=== PATIENT | male | born 1960 | race Caucasian/White ===

== ENCOUNTER 2022-03-27 19:13 | Emergency (ER) | payer OTHER, SELFPAY ==
--- NOTE | ~2022-03-27 | XR_ITS ---
EXAMINATION: XR chest 1V portable DATE: 03/27/2022 21:37 INDICATION: Atrial fibrillation with palpitations TECHNIQUE: frontal view of the chest was obtained. COMPARISON: None FINDINGS: Mild streaky bibasilar atelectasis. No pulmonary edema, pleural effusion or pneumothorax. The cardiom ediastinal silhouette is normal. IMPRESSION: 1. Mild streaky bibasilar atelectasis. Reviewed, dictated and finalized at location A.
--- NOTE | 2022-03-27 19:21 | ECG_ITS ---
Measurements Intervals [place] Rate: 96 P: MO: 0 QRS: 20 QRSD: 125 T: 5 QT: 346 QTc: 438 Interpretive Statements ATRIAL FIBRILLATION INTRAVENTRICULAR CONDUCTION DELAY DELAYED PRECORDIAL R/S TRANSITION BORDERLINE T WAVE ABNORMALITY- ANT/INF LEADS ABNORMAL ECG Electronically Signed On 03-27-2022 23:18:04 CDT by Bull Bales D.O.
[2022-03-27 19:32] VITALS: BP 145/86; PULSE 96; RESP 16; TEMP 36.4; O2SAT 98
--- NOTE | 2022-03-27 20:36 | ED.GENADULT ---
HPI - General Adult General Chief complaint: Arrhythmia/Palpitations Stated complaint: palpitations Time Seen by Provider: 03/27/22 20:23 History of Present Illness HPI narrative: Patient is a 61-year-old gentleman who presents to the emergency department with chief complaint of palpitations. Patient states that on Monday night he noticed that his heart started beating irregular. Patient states that he has had similar episodes about a year ago whenever he had a bout of atrial fibrillation at that time the patient was admitted to the hospital over the weekend at [facility] and had a cardioversion patient states that he followed up with a fountain worker with [facility] and subsequently has been doing well for some time afterwards the patient states that he had no chest pain or shortness of breath reports no episodes of feeling as though his heart is beating extremely fast he just feels as though his heart is beating funny. Related Data Allergies Allergy/AdvReac Type Severity Reaction Status Date / Time No Known Allergies Allergy Mild Verified 03/27/22 19:46 Review of Systems Review of Systems: A 10 system review of systems was completed on the patient and is negative except for what is stated in the HPI. Nursing and ancillary documentation was reviewed. Exam Narrative: GENERAL: Well-appearing, well-nourished, and in no acute distress. HEAD: Normocephalic, atraumatic. EYES: PERRLA and EOMI. ENT: Nares clear, no rhinorrhea or epistaxis. Mucous membranes moist. NECK: Supple. CHEST: Clear to auscultation. No respiratory distress. HEART: Irregular rate and rhythm. No murmur heard. Normal peripheral pulses. ABDOMEN: Soft, nontender, nondistended, normal active bowel sounds. EXTREMITIES: Normal range of motion. No edema. SKIN: Warm, dry, no rash. NEURO: No focal deficits. Alert and oriented x3. PSYCH: Normal mood and affect. Course Course Emergency Course: EKG interpreted by me atrial fibrillation with a rate of [address] elevation or ST depression Vital Signs Vital signs: Vital Signs Temperature 36.4 C 03/27/22 19:32 Pulse Rate 96 03/27/22 19:32 Respiratory Rate 16 03/27/22 19:32 Blood Pressure 145/86 H 03/27/22 19:32 Pulse Oximetry 98 03/27/22 19:32 Oxygen Delivery Room Air 03/27/22 19:32 Temperature 36.4 C 03/27/22 19:32 Pulse Rate 85 03/27/22 20:43 Respiratory Rate 12 03/27/22 20:43 Blood Pressure 128/88 03/27/22 20:43 Pulse Oximetry 97 03/27/22 20:43 Oxygen Delivery Room Air 03/27/22 19:32 Medical Decision Making Vital Signs Vital Signs: Vital Signs Temperature 36.4 C 03/27/22 19:32 Pulse Rate 96 03/27/22 19:32 Respiratory Rate 16 03/27/22 19:32 Blood Pressure 145/86 H 03/27/22 19:32 Pulse Oximetry 98 03/27/22 19:32 Oxygen Delivery Room Air 03/27/22 19:32 Temperature 36.4 C 03/27/22 19:32 Pulse Rate 85 03/27/22 20:43 Respiratory Rate 12 03/27/22 20:43 Blood Pressure 128/88 03/27/22 20:43 Pulse Oximetry 97 03/27/22 20:43 Oxygen Delivery Room Air 03/27/22 19:32 Lab Data Result diagrams: 03/27/22 21:00 03/27/22 20:59 Labs: Lab Results 03/27/22 03/27/22 03/27/22 Range/Units 20:59 21:00 21:00 WBC 9.5 (4.5-10.0) K/mm3 RBC 4.51 L (4.6-6.20) M/mm3 Hgb 13.6 L (14.0-18.0) g/dL Hct 42.1 (42.0-52.0) % MCV 93.3 (80-100) fl MCH 30.2 (26-34) pg MCHC 32.3 (32-36) g/dl RDW 13.2 (11.5-14.5) % Plt Count 359 (150-375) k/mm3 MPV 9.3 (7.4-10.4) fl Immature Gran % (Auto) 0.4 (0-0.5) % Neut % (Auto) 58.6 (45.5-73.1) % Lymph % (Auto) 32.1 (18.3-44.2) % [place] % (Auto) 6.9 (2.6-8.5) % Eos % (Auto) 1.8 (0-4.4) % Baso % (Auto) 0.2 (0.2-1.2) % Lymph # (Auto) 3.06 (0.9-3.2) K/mm3 [place] # (Auto) 0.7 H (0.1-0.6) K/mm3 Eos # (Auto) 0.2 (0-0.3) K/mm3 Baso # (Auto) 0.0 (0.0-0.1) K/mm3 Abs Immat Gran (auto) 0.04 H
[2022-03-27 20:43] VITALS: BP 128/88; PULSE 85; RESP 12; O2SAT 97
[2022-03-27 21:05] LABS: Basophils Percent Auto 0.2 % (0.2-1.2); Eosinophils Absolute Auto 0.2 K/mm3 (0-0.3); Eosinophils Percent Auto 1.8 % (0-4.4); Hematocrit 42.1 % (42.0-52.0); Hemoglobin 13.6 g/dL (14.0-18.0); Immature Granulocyte Absolute 0.04 K/mm3 (0.00-0.031); Immature Granulocyte Percent A 0.4 % (0-0.5); Lymphocytes Absolute Auto 3.06 K/mm3 (0.9-3.2); Lymphocytes Percent Auto 32.1 % (18.3-44.2); Mean Corpuscular HGB Conc 32.3 g/dl (32-36); Mean Corpuscular Hemoglobin 30.2 pg (26-34); Mean Corpuscular Volume 93.3 fl (80-100); Mean Platelet Volume 9.3 fl (7.4-10.4); Monocytes Absolute Auto 0.7 K/mm3 (0.1-0.6); Monocytes Percent Auto 6.9 % (2.6-8.5); Neutrophils Absolute Auto 5.6 K/mm3 (1.3-6.7); Neutrophils Percent Auto 58.6 % (45.5-73.1); Platelet Count Result 359 k/mm3 (150-375); Red Blood Count 4.51 M/mm3 (4.6-6.20); Red Cell Distribution Width 13.2 % (11.5-14.5); White Blood Count 9.5 K/mm3 (4.5-10.0)
[2022-03-27 21:16] LABS: Alanine Aminotransferase 19 U/L (6-50); Albumin Level 3.9 g/dL (3.5-5.1); Alkaline Phosphatase 48 U/L (38-126); Anion Gap 4 mmol/L (8-16); Aspartate Amino Transferase 19 U/L (17-59); Bilirubin,Total 0.3 mg/dL (0.2-1.3); Blood Urea Nitrogen 17 mg/dL (9-20); Calcium 8.7 mg/dL (8.4-10.2); Carbon Dioxide 26 mmol/L (22-30); Chloride 108 mmol/L (98-107); Estimated CRCL calculation 97 ml/min; Estimated Glomerular Filt Rate > 60; Glucose 97 mg/dL (65-110); Magnesium 2.1 mg/dL (1.6-2.3); Sodium 138 mmol/L (137-145)
[2022-03-27 21:17] LABS: INR 1.1; Prothrombin Time 13.7 Seconds (11.1-14.7)
[2022-03-27 21:18] LABS: Partial Thromboplastin Time 27.9 SECONDS (22.3-36.8)
[2022-03-27 21:28] LABS: NT Pro B Type Natriuretic Pept 734 pg/mL (5-100); Troponin I < 0.012 ng/mL (0.000-0.034)
[2022-03-27 22:11] VITALS: BP 134/80; PULSE 110; O2SAT 97
[2022-03-27] MEDS: ASPIRIN 325 MG TABLET PO (22:23)
[2022-03-27 22:30] VITALS: BP 128/83; PULSE 85; RESP 18; O2SAT 98
== END 2022-03-27 22:31 | disposition home or self-care (01) ==
PROVIDERS: Emergency Provider Emergency Medicine
DX: I48.91 Unspecified atrial fibrillation (principal); I45.9 Conduction disorder, unspecified; R94.31 Abnormal electrocardiogram [ECG] [EKG]
CPT/HCPCS: 36415; 71045; 80053; 83735; 83880; 84484; 85025; 85610; 85730; 93005; 99284; A9270

== ENCOUNTER 2024-08-07 14:33 | Outpatient (CLI) | payer BC, SELFPAY ==
--- NOTE | ~2024-08-07 | US_ITS ---
EXAMINATION:US venous doppler LE BI INDICATION:Lower extremity swelling TECHNIQUE: Multiple grayscale, color flow and Doppler images of the right and left lower extremity de ep venous systems were obtained and reviewed. COMPARISON:No prior studies for comparison. FINDINGS: The common femoral, superficial femoral and popliteal veins demonstrate normal respiratory variation, augmentation and compressibility. Color flow is also seen within the posterior tibial, pe roneal, greater saphenous and profunda veins. IMPRESSION: 1: No lower extremity deep venous thrombosis. Reviewed, dictated and finalized at location B. ENT GRINDER
== END 2024-08-07 14:34 | disposition home or self-care (01) ==
PROVIDERS: PCP Nurse Practitioner Family; Visit Provider Nurse Practitioner Family
DX: M79.89 Other specified soft tissue disorders (principal); I82.403 Acute embolism and thrombosis of unspecified deep veins of lower extremity, bilateral; R79.89 Other specified abnormal findings of blood chemistry
CPT/HCPCS: 93970

== ENCOUNTER 2024-10-10 14:37 | Outpatient (CLI) | payer BC, SELFPAY ==
--- OUTSIDE RECORDS SUMMARY | 2024-10-10 15:11 | XMS_ITS | Clinical Summary ---
Author Organization [facility] Address [address] [place] [address] Care Team Providers Care Dynamometer Tuner Name Role Phone Unknown, Provider Primary Care Provider Unavaila ble Source Comments [facility],non-owned Affiliates and Associated Physician Practices is amultiple site organization consisting of ambulatory clinics and hospital sitesin [place], [place], [place]. This disclosure is being madepursuant to the Care Everywhere program and may not contain all information available regarding this patient. Last updated 18.[facility] [employer] - Share Your Passion! Allergies No known active allergies Medications * Be aware that medications may not be up to date on this document. Alwaysverify current medications with the patient. Medication Sig Dispensed Refills Start Date End Date Status amiodarone (Cordarone) 200 MG tablet Take 1 (one) tablet by mouth 2 times daily 12/14/2023 Active tirzepatide (Mounjaro) 5 MG/0.5ML injectionIndicat ions:Weight Loss Inject 5 (five) mg subcutaneously every 7 days Reasons: Weight Loss Active apixaban (Eliquis) 5 MG tablet Take 1 (one) tablet by mouth 2 times daily Active prednisoLONE acetate (Pred Forte) 1 % ophthalmic suspension Instill 1 (one) drop into right eye 4 times daily 09/25/2024 Active nepafenac (Nevanac) 0.1 % ophth suspension Instill 1 drop into right eye 4 times daily 09/25/2024 Active moxifloxacin (Vigamox) 0.5 % ophthalmic solution Instill 1 (one) drop into right eye 4 times daily 09/25/2024 Active rosuvastatin (Crestor) 20 MG tablet 10/01/2024 Active prednisoLONE acetate (Pred Forte) 1 % ophthalmic suspension Instill 1 (one) drop into left eye 4 times daily 10/09/2024 Active nepafenac (Nevanac) 0.1 % ophth suspension Instill 1 drop into left eye 4 times daily 10/09/2024 Active moxifloxacin (Vigamox) 0.5 % ophthalmic solution Instill 1 (one) drop into left eye 4 times daily 10/09/2024 Active brimonidine (Alphagan) 0.2 % ophthalmic solution Instill 1 (one) drop into left eye 3 times daily 15 mL 10/09/2024 Active dilTIAZem coated beads 24hr (Cardizem CD) 120 MG capsule Take 1 (one) capsule by mouth once daily 08/11/2023 5 Discontinue d(List Clean-Up) Tiadylt ER 120 MG capsule Take 1 (one) capsule by mouth once daily 12/14/2023 5 Discontinue d(List Clean-Up) rosuvastatin (Crestor) 20 MG tablet Take 1 (one) tablet by mouth once daily 12/14/2023 5 Discontinue d(List Clean-Up) Jardiance 10 MG tablet Take 1 (one) tablet by mouth once daily 09/26/2023 5 Discontinue d(List Clean-Up) apixaban (Eliquis) 5 MG tablet Take 1 (one) tablet by mouth 2 times daily 5 Discontinue d(List Clean-Up) Active Problems No known active problems Encounters Date Type Department Care Team Description 10/09/2024 9:30 AM UNIVERSAL BANKER Office Visit [facility] - Ophthalmology [facility] [place] [phone] Piyush Lafleur MD Postop check (Primary Dx) 10/09/2024 Travel 10/08/2024 7:25 AM UNIVERSAL BANKER - 10/08/2024 8:15 AM UNIVERSAL BANKER Surgery [facility] SURGERY [address] [place] [phone] Piyush Lafleur MD Cataract extraction with intraocular lens implanation, LEFT EYE 10/08/2024 7:25 AM UNIVERSAL BANKER Anesthesia Event [facility] [address] [place] [phone] Tom Inman MD Rinderer, Mallory, CECILIO-FINAL ASSEMBLER BOAT 10/08/2024 6:08 AM UNIVERSAL BANKER - 10/08/2024 8:24 AM UNIVERSAL BANKER Hospital Encounter [facility] [address] [place] [phone] Piyush Lafleur MD Surgery General Discharge Disposition: Home or Self Care 10/08/2024 Travel 10/02/2024 3:00 PM UNIVERSAL BANKER Office Visit [facility] - Ophthalmology [address] [place] [phone] Piyush Lafleur MD Postop check (Primary Dx) 10/02/2024 Travel 09/25/2024 9:30 AM UNIVERSAL BANKER Office Visit [facility] - Ophthalmology [address] [place] [phone] Piyush Lafleur MD Postop check (Primary Dx) 09/25/2024 Travel 09/24/2024 7:26 AM UNIVERSAL BANKER Anesthesia Event [facility] [address] [place] [phone] Song Stubbs MD Rinderer, Mallory, COMMERCIAL FINANCE MANAGER-FINAL ASSEMBLER BOAT 09/24/2024 7:25 AM UNIVERSAL BANKER - 09/24/2024 8:15 AM UNIVERSAL BANKER Surgery [facility] [address] [place] [phone] Piyush Lafleur MD Cataract extraction with intraocular lens implanation, RIGHT EYE 09/24/2024 6:06 AM UNIVERSAL BANKER - 09/24/2024 8:45 AM UNIVERSAL BANKER Hospital Encounter [facility] [address] [place] [phone] Piyush Lafleur MD Surgery General Discharge Disposition: Home or Self Care 09/24/2024 Travel from Last 3 Months Social History Tobacco Use Types Packs/Day Years Used Date Smoking Tobacco: Never Smokeless Tobacco: Never Tobacco Cessation:Counseling Given: Not Answered Alcohol Use Standard Drinks/Week Comments Not Currently 0 (1 standard drink = 0.6 oz pur e alcohol) NOT FOR 2 YEARS Sex and Gender Information Value Date Recorded Sex Assigned at Not on file Gender Identity Not on file Sexual Orientation Not on file Last Filed Vital Signs Vital Sign Reading Time Taken Comments Blood Pressure 114/78 10/08/2024 8:10 AM UNIVERSAL BANKER Pulse 70 10/08/2024 8:10 AM UNIVERSAL BANKER Temperature 36.3 ??C (97.3 ??F) 10/08/2024 8:00 AM CS T Respiratory Rate 14 10/08/2024 8:10 AM UNIVERSAL BANKER Oxygen Saturation 96% 10/08/2024 8:10 AM UNIVERSAL BANKER Inhaled Oxygen Concentration - - Weight 146.4 kg (322 lb 12.8 oz) 10/08/2024 6:26 AM UNIVERSAL BANKER Height 182.9 cm (6') 10/08/2024 6:26 AM UNIVERSAL BANKER Body Mass Index 43.78 10/08/2024 6:26 AM UNIVERSAL BANKER Plan of Treatment Upcoming Encounters Date Type Department Care Team (Late st Contact Info) Description 10/16/2024 3:00 PM UNIVERSAL BANKER Office Visit [facility] - Ophthalmology [address] [place] [phone] Piyush Lafleur MD [address] [place] [address] [place] [phone] Health Maintenance Due Date Last Done Comments COLOGUARD (AGES 45-75) - COL ON CA SCREENING 1958 COLON MONITORING 1958 COLONOSCOPY - COLON CA SCREENING 1958 CT COLONOGRAPHY - COLON CA SCREENING 1958 Colorectal Cancer Screening 1958 FIT - COLON CA SCREENING 1958 FLEX SIG - COLON CA SCREENING 1958 HIV SCREENING 1973 HEPATITIS C SCREENING 11/22/1976 DTAP/TDAP/TD VACCINES (1 - Tdap) 1977 PNEUMOCOCCAL VACCINE 50+ (1 of 1 - PCV) 2008 ZOSTER VACCINE (1 of 2) 2008 Respiratory Syncytial Virus (RSV) Vaccine Pt: or over 60 yrs (1 - Risk 60-74 years 1-dose series) 2018 COVID-19 VACCINE ( - 2023-2 5 season) 2024 INFLUENZA VACCINE (#1) 2024 DEPRESSION SCREENING 09/11/2024 SCREENING FOR DIABETES 09/25/2024 HEPATITIS B VACCINE Aged Out No longe r eligible based on patient's age to complete this topic HIB VACCINE Aged Out No longer eligi ble based on patient's age to complete this topic HPV VACCINE Aged Out No longer eligi ble based on patient's age to complete this topic MENINGOCOCCAL (Group B) VACCINE Aged Out No longer eligible based on patient's age to complete this topic MENINGOCOCCAL VACCINE Aged Out No nas roxane eligible based on patient's age to complete this topic Medical Devices Implanted Type Area Turbinated Bone Grinder Device Identifier Shelf Expiration Date Model / Serial / Lot [employer] Iol Aspheric Absorbing Iol +20.5 D Implanted:Qty: 1 on 09/24/2024 by Piyush Lafleur MD at [facility] Implant Non-Ortho Right: Eye [employer] 07/05/2027 [id number] / [id number] / N/A Clareon Iol [id number] 21.5 Implanted:Qty: 1 on 10/08/2024 by Piyush Lafleur MD at [facility] Left: Eye 06/20/2027 CCA0T0 / [id number] / Procedures Procedure Name Priority Date/Time Associated Diagnosis Comments HI REMV CATARACT EXTRACAP,INSERT LENS 10/08/2024 7:19 AM UNIVERSAL BANKER Combined forms of age-related cataract of both eyes Special Needs SUPINE, MAC LOCAL HI REMV CATARACT EXTRACAP,INSERT LENS 09/24/2024 7:21 AM UNIVERSAL BANKER Combined forms of age-related cataract of both eyes Special Needs SUPINE, MAC LOCAL from Last 3 Months Care Teams Dynamometer Tuner Relationship Specialty Start Date End Date Unknown, Provider PCP - General 12/26/23
--- OUTSIDE RECORDS SUMMARY | 2024-10-10 15:11 | XMS_ITS | CONTINUITY OF CARE DOCUMENT ---
Author Name ovidio nolan Address Unknown Organization [facility] Address [address] [place] [address] Phone [phone] Care Team Providers Care Route Salesman Name Role Phone Kimani Driscoll MD Unavailable PRESTON FLAHERTY MD Unavailable [phone] PRESTON FLAHERTY MD Unavailable [phone] PROBLEMS Condition Status Date Provider Notes Hyperlipidemia;with high crp active Julio Polanco MD Screening active Julio Polanco MD B12 deficiency active Julio Polanco MD nml iorn Vitamin D deficiency active Julio Mccurdy Diastolic CHF active Julio Polanco MD Family History Coronary Hear t Disease male < 55: active Kimani Driscoll MD Atrial fibrillation;nml tsh active Julio sawyer MD Snoring active Kimani Driscoll MD Obesity active Kimani Driscoll MD ENCOUNTERS Date Type Provider Location Encounter Diag nosis - In-person encounter Office Visit Mamie Mejía MD [facility] Office - In-person encounter Office Visit Mamie Mejía MD [facility] - In-person encounter Office Visit Kimani Driscoll MD [facility] - In-person encounter Office Visit Kimani Driscoll MD [facility] - In-person encounter Office Visit Julio Polanco MD [facility] - In-person encounter Office Visit Kimani Driscoll MD [facility] Diastolic CHFFamily History Coronary Heart Disease male < 55:Atrial fibrillation;nml tshSnoringObesity VITAL SIGNS Date Observation Value Provider Body Mass Index (Ratio) 41.50 kg/m2 Samir Mejía MD blood pressure, diastolic 80 mm[Hg] Li nkLogic blood pressure, systolic 130 mm[Hg] Dominique kLogic blood pressure, diastolic 80 mm[Hg] Ma rsha O'Alberto blood pressure, systolic 130 mm[Hg] Mar sha O'Alberto blood pressure, resting No [place] zamora O'Alberto oxygen saturation, oximetry 98 % Lucy O'Alberto respiratory rate E&M 16 /min Lucy O'Alberto pulse rate 89 /min Lucy O'Alberto weight E&M 306 [lb_av] Lucy O'Alberto height E&M 72 [in_i] Lucy O'Alberto Body Mass Index (Ratio) 41.50 kg/m2 Clay Reyes blood pressure, diastolic 84 mm[Hg] Li nkLogic blood pressure, systolic 123 mm[Hg] Dominique kLogic blood pressure, diastolic 84 mm[Hg] Ri yi Oliva blood pressure, systolic 123 mm[Hg] Jabier jason Oliva blood pressure, cuff size large Ri yi Oliva oxygen saturation, oximetry 97 % Beernice Oliva respiratory rate E&M 17 /min Dat Oliva pulse rate 70 /min Berenice mcdonnell weight E&M 306 [lb_av] Berenice Lee son height E&M 72 [in_i] Berenice Lee son Body Mass Index (Ratio) 40.95 kg/m2 Jayden Driscoll MD blood pressure, cuff size large Ke rri Abramnelulaeldoma blood pressure, diastolic 60 mm[Hg] Ke rri Arjunuenelulaelder blood pressure, systolic 96 mm[Hg] Quentin ri [facility], oximetry 98 % Iza Díazrexlulacleveland emergency hospital respiratory rate E&M 16 /min Iza Velasquez [facility] pulse rate 89 /min Iza Valverdesigifredogisele er weight E&M 302 [lb_av] Iza Moodye lder height E&M 72 [in_i] Iza Fransiscoe lder blood pressure, diastolic 61 mm[Hg] Sa ra Martin blood pressure, systolic 111 mm[Hg] Mario a Martin respiratory rate E&M 19 /min Ericka Si ms oxygen saturation, oximetry 96 % Ericka Martin pulse rate 91 /min Ericka Martin blood pressure, cuff size regular Sa ra Martin height E&M 72 [in_i] Ericka Martin weight E&M 314 [lb_av] Yaron panda Body Mass Index (Ratio) 42.55 kg/m2 Orlni Polanco MD blood pressure, diastolic 77 mm[Hg] Taisha nkLogbryant blood pressure, systolic 128 mm[Hg] Dominique kLogic blood pressure, cuff size large Ta fernando Van blood pressure, diastolic 77 mm[Hg] Ta fernando Van blood pressure, systolic 128 mm[Hg] Downey brodie Van oxygen saturation, oximetry 96 % Anika Cottonwood respiratory rate E&M 22 /min Anika [place] pulse rate 123 /min Anika [place] weight E&M 313.8 [lb_av] Anika [place] height E&M 72 [in_i] Anika Cottonwood Body Mass Index (Ratio) 41.23 kg/m2 Jayden Driscoll MD blood pressure, resting No Cynt adelfo Hoyt blood pressure, cuff size regular Cy rusty Hoyt blood pressure, diastolic 80 mm[Hg] Cy rusty Hoyt blood pressure, systolic 134 mm[Hg] Tanya mushtaq Hoyt oxygen saturation, oximetry 94 % Leslie Hoyt pulse rate 78 /min Leslie Campbel l respiratory rate E&M 16 /min Leslie Hoyt height E&M 72 [in_i] Leslie Campbel l weight E&M 304 [lb_av] Leslie Campbel l ALLERGIES No Known Drug Allergies RESULTS Date Observation Value Provider Reference Range Interpretation Location prothrombin time (patient) 10.6 s LinkLog[facility] 9.0-11.5 Normal international normalized ratio (INR) 1.0 [facility] Normal basophils as percent of blood leukocytes 0.2 % [facility] Normal eosinophils as percent of blood leukocytes 3.1 % [facility] Normal monocyte count, blood 7.2 % [facility] Normal lymphocyte count, blood 35.5 % [facility] Normal neutrophils as percent of blood leukocytes 54 % [facility] Normal basophils, absolute, manual 16 cells/mcL [facility] 0-200 Normal eosinophils, absolute, manual 254 cells/mcL [facility] 15-500 Normal monocytes, absolute, manual 590 cells/mcL [facility] 200-950 Normal lymphocytes, absolute 2911 CELLS/UL [facility] 850-3900 Normal Absolute Neutrophil count 4428 cells/mcL [facility] 8794-7409 Normal mean platelet volume 10.0 fL [facility] 7.5-12.5 Normal platelet count 397 THOUSAND/UL [facility] 140-400 Normal red blood cell distribution width 12.2 % [facility] 11.0-15.0 Normal mean corpuscular hemoglobin concentration, RBC 33.5 G/DL [facility] 32.0-36.0 Normal mean corpuscular hemoglobin, RBC 30.6 pg [facility] 27.0-33.0 Normal mean corpuscular volume, RBC 91.3 fL [facility] 80.0-100.0 Normal hematocrit, blood 45.1 % [facility] 38.5-50.0 Normal hemoglobin electrophoresis, blood 15.1 [facility] 13.2-17.1 Normal erythrocyte (RBC) count 4.94 MILLION/UL [facility] 4.20-5.80 Normal leukocyte (white blood cells) count, blood 8.2 THOUSAND/UL [facility] 3.8-10.8 Normal calcium, serum 9.5 mg/dL [facility] 8.6-10.3 Normal carbon dioxide, venous blood 26 mmol/L [facility] 20-32 Normal chloride, serum 105 mmol/L [facility] 98-110 Normal potassium, serum 4.7 mmol/L [facility] 3.5-5.3 Normal sodium, serum 140 mmol/L [facility] 135-146 Normal urea nitrogen/creatinine ratio, serum NOT APPLICABLE (calc) [facility] 6-22 creatinine, serum 1.04 mg/dL [facility] 0.70-1.35 Normal urea nitrogen, blood 10 mg/dL [facility] 7-25 Normal blood glucose, random 89 mg/dL [facility] 65-99 Normal magnesium, serum 2.1 mg/dL [facility] 1.5-2.5 Normal cholesterol, non-HDL, total 86 MG/DL (CALC) [facility] <130 Normal cholesterol/HDL ratio, serum, percent 2.8 (calc) [facility] <5.0 Normal LDL cholesterol, serum 70 MG/DL (CALC) [facility] Normal triglyceride, serum, fasting 84 mg/dL [facility] <150 Normal HDL cholesterol, serum 47 mg/dL [facility] > OR = 40 Normal cholesterol, serum 133 mg/dL [facility] <200 Normal prothrombin time (patient) 10.6 s Link[facility] 9.0-11.5 Normal international normalized ratio (INR) 1.0 [facility] Normal calcium, serum 9.8 mg/dL [facility] 8.6-10.3 Normal carbon dioxide, venous blood 29 mmol/L [facility] 20-32 Normal chloride, serum 106 mmol/L [facility] 98-110 Normal potassium, serum 4.2 mmol/L [facility] 3.5-5.3 Normal sodium, serum 141 mmol/L [facility] 135-146 Normal urea nitrogen/creatinine ratio, serum NOT APPLICABLE (calc) [facility] 6-22 creatinine, serum 1.22 mg/dL [facility] 0.70-1.35 Normal urea nitrogen, blood 16 mg/dL [facility] 7-25 Normal blood glucose, random 81 mg/dL [facility] 65-99 Normal magnesium, serum 2.2 mg/dL [facility] 1.5-2.5 Normal hemoglobin A1C, blood, as % of total hemoglobin 5.4 % OF TOTAL HGB [facility] <5.7 Normal B-12, serum 191 pg/mL [facility] 200-1100 Low ferritin, serum 122 ng/mL LinkLog 24-380 Normal C-reactive protein, by highly sensitive test 2.0 mg/L [facility] Normal basophils as percent of blood leukocytes 0.3 % [facility] Normal eosinophils as percent of blood leukocytes 1.6 % [facility] Normal monocyte count, blood 7.7 % [facility]Log[facility] Normal lymphocyte count, blood 27.9 % [facility] Normal neutrophils as percent of blood leukocytes 62.5 % [facility] Normal basophils, absolute, manual 23 cells/mcL [facility] 0-200 Normal eosinophils, absolute, manual 120 cells/mcL [facility] 15-500 Normal monocytes, absolute, manual 578 cells/mcL [facility] 200-950 Normal lymphocytes, absolute 2093 CELLS/UL LinkLog 850-3900 Normal Absolute Neutrophil count 4688 cells/mcL [facility] 3173-4120 Normal mean platelet volume 10.0 fL LinkLog 7.5-12.5 Normal platelet count 382 THOUSAND/UL [facility] 140-400 Normal red blood cell distribution width 12.5 % LinkLog 11.0-15.0 Normal mean corpuscular hemoglobin concentration, RBC 33.3 G/DL [facility]Log 32.0-36.0 Normal mean corpuscular hemoglobin, RBC 30.3 pg LinkLog 27.0-33.0 Normal mean corpuscular volume, RBC 91.2 fL LinkLog 80.0-100.0 Normal hematocrit, blood 42.4 % [facility] 38.5-50.0 Normal hemoglobin electrophoresis, blood 14.1 LinkLog 13.2-17.1 Normal erythrocyte (RBC) count 4.65 MILLION/UL Link[facility] 4.20-5.80 Normal leukocyte (white blood cells) count, blood 7.5 THOUSAND/UL [facility] 3.8-10.8 Normal NT-pro BNP 568 LinkLogic High calcium, serum 9.4 mg/dL [facility] 8.6-10.3 Normal carbon dioxide, venous blood 28 mmol/L [facility] 20-32 Normal chloride, serum 107 mmol/L [facility] 98-110 Normal potassium, serum 4.3 mmol/L [facility] 3.5-5.3 Normal sodium, serum 141 mmol/L [facility] 135-146 Normal urea nitrogen/creatinine ratio, serum NOT APPLICABLE (calc) [facility] 6-22 creatinine, serum 1.06 mg/dL [facility] 0.70-1.35 Normal urea nitrogen, blood 16 mg/dL [facility] 7-25 Normal blood glucose, random 96 mg/dL [facility] 65-99 Normal iron saturation percent, serum 37 % (CALC) [facility] 20-48 Normal iron binding capacity, total 290 MCG/DL (CALC) [facility] 250-425 Normal iron, serum 106 ug/dL [facility] 50-180 Normal thyroid stimulating hormone, serum 1.05 u[IU]/mL [facility] 0.40-4.50 Normal free thyroxine index 2.8 [facility] 1.4-3.8 Normal thyroxine, serum, total 8.9 ug/dL [facility] 4.9-10.5 Normal triiodothyronine resin uptake 31 % [facility] 22-35 Normal cholesterol, non-HDL, total 107 MG/DL (CALC) [facility] <130 Normal cholesterol/HDL ratio, serum, percent 3.4 (calc) [facility] <5.0 Normal LDL cholesterol, serum 84 MG/DL (CALC) [facility] Normal triglyceride, serum, fasting 133 mg/dL [facility] <150 Normal HDL cholesterol, serum 45 mg/dL [facility]ic > OR = 40 Normal cholesterol, serum 152 mg/dL [facility] <200 Normal HISTORY OF MEDICATION USE Medication Status Instructions Dates Provider Indications Com ments rosuvastatin 20 mg tablet active TAKE 1 TABLET BY MOUTH EVERY DAY diltiazem HCl 120 mg capsule,extended release 24hr active TAKE 1 CAPSULE BY MOUTH EVERY DAY Iza Alexandre amiodarone 200 mg tablet active TAKE 1 TABLET BY MOUTH THREE TIMES A DAY Jardiance 10 mg tablet active TAKE 1 TABLET BY MOUTH EVERY DAY Cristina Mendoza amiodarone 200 mg tablet completed TAKE 1 TABLET BY MOUTH 3 TIMES A DAY - Harini Castillo [place] Specialist amiodarone 200 mg tablet completed Take 1 tablet by mouth three times a day - Allyson Belle RN magnesium oxide 400 mg (241.3 mg magnesium) tablet active Take 1 tablet by mouth twice a day Valerie Alva NP flecainide 100 mg tablet completed TAKE 1 TABLET BY MOUTH TWICE A DAY. start taking 06/20 - Amador Watts RN sertraline 25 mg tablet active Take 1 tablet by mouth once a day Valerie Alva NP Jardiance 10 mg tablet completed Take 1 tablet by mouth once a day - Cristina Mendoza rosuvastatin 20 mg tablet completed TAKE 1 TABLET BY MOUTH DAILY - ergocalciferol (vitamin D2) 1,250 mcg (50,000 unit) capsule active TAKE 1 CAPSULE BY MOUTH ONE TIME PER WEEK Julio Polanco MD cyanocobalamin (vitamin B-12) 1,000 mcg capsule active Take 1 capsule by mouth once a day Julio Polanco MD Eliquis 5 mg tablet active Take 1 tablet by mouth twice a day pt needs apt for more refills Harini Aguilera [facility] Specialist Xarelto 20 mg tablet completed Take 1 tablet by mouth once a day new dose - Kimani Driscoll MD Cardizem CD 120 mg capsule,extended release 24hr completed Take 1 capsule by mouth once a day - Iza Alexandre Cardizem CD 120 mg capsule,extended release 24hr completed Take 1 tablet once a day - Valerie Alva SALES AND MARKETING ASSISTANT Eliquis 5 mg tablet completed Take 1 tablet by mouth twice a day - Valerie Alva NP omeprazole 20 mg tablet,delayed release (DR/EC) active Take 1 tablet once a day Leslie Hoyt SOCIAL HISTORY Date Observation Value Provider social history E&M Marital Statu s: Brianna loaizaen: 1 O ccupation: Warehouse Smoking History: P atient has never smoked. Jethro Maguire social history reviewed E&M revi ewed - no changes required Jethro Maguire Exercise counseling yes Lucy Yip smoking status Never smoker Lucy Allison Exercise counseling yes Valerie Alva NP smoking status Never smoker Berenice payne social history E&M Marital Statu s: Brianna loaizaen: 1 O ccupation: Warehouse Smoking History: P atient has never smoked. Kimani Driscoll MD social history reviewed E&M revi ewed - no changes required Kimani Driscoll MD smoking status Never smoker Iza amaya social history reviewed E&M revi ewed - no changes required Kimani Driscoll MD smoking status Never smoker Anika Holbrook social history E&M Marital Statu s: Brianna sorto: 1 O ccupation: Warehouse Smoking History: P moris has never smoked. Kimani Driscoll MD social history reviewed E&M jazmyne maxwelled - no changes required Kimani Driscoll MD smoking status Never smoker Leslie williamson FAMILY HISTORY Family Member Condition Father [place] male <55 Father Family History of Co ronary Artery Disease: Father Family History Coron deja Heart Disease male < 55: INSURANCE PROVIDERS Payer name Policy type / Coverage type [place] red libertarian ID [facility] [id number] ADVANCE DIRECTIVES Name Date DISCUSSED - NO DECISION MADE TREATMENT PLAN Date Name Performer [id number],CMamie MD [id number],C, Mamie perkins MD [id number],C, Mamie perkins MD [id number],CMamie MD [id number],C, s /p successful CV 11/2020 s /p unsuccessful CV after 3 shocks 05/20/22 s tarted flecainide this , remains in afib today H is updated medication list for this problem includes: Flecainide 100 Mg Tablet (Flecainide) ..... Take 1 tablet by mouth twice a day. start taking wednesday 06/20 Mamie Mejía MD [id number],S, Jethro Maguire [id number],C,s /p successful CV 11/2020 s /p unsuccessful CV after 3 shocks 05/20/22 will continue cardizem CD and start flecainide 100mg BID starting monday night 06/19. pt will return to office on 06/20 for EKG. will arrange for cardioversion on friday 06/22. will arrange for afib ablation. will obtain pre-ablation CT and pre-procedure labs. will start magnesium oxide 400mg BID. His updated medication list for this problem includes: Flecainide 100 Mg Tablet (Flecainide) ..... Take 1 tablet by mouth twice a day. start taking wednesday 06/20 Valerie Alva NP [id number],S, Kimani kennedy MD [id number],S, Kimani kennedy MD [id number],S, Kimani kennedy MD [id number],S,Awaiting appr oval for sleep study Kimani Driscoll MD [id number],S, Kimani kennedy MD [id number],S, Kimani kennedy MD [id number],S, Kimani kennedy MD [id number],S, Kimani kennedy MD [id number],C,H as severe sleep apnea. Arranging CPAP titration study. Kimani Driscoll MD [id number],C,Will do BURT/C V. Kimani Driscoll MD [id number],C,nml a1c Roland Polanco MD [id number],C,nml a1c and t sh Julio Polanco MD [id number],C,e ncouraged heart healthy diet, decreased carbs, more veggies, and lean meats, fish and turkey/chicken. Valerie Alva NP [id number],C,will check sl eep study Valerie Avla NP [id number],C, he was admitted at [facility] since new onset AFIB RVR, for which he had BURT/CV and was started on Cardizem CD and eliquis. pt states that he stopped taking both shortly after discharge. he states prior to onset of symptoms last Monday, he reports that he would experience palpitations maybe 1 or 2 times per months, only lasting a second or 2. Last Monday03/22/22 he reports palpitations that started around 10pm. pt states that 'normally it will straight it out on own.' He states that this time he continued to have palpitations with assciated 'panic attacks' that continued until Tuesday 03/27. pt presented to [facility]. EKG revealed AFIB and was sent home on Cardizem CD 120mg and asa. pt followed up [facility] PCP, Dr. Flaherty on Monday. he was concerned that pt was not on OAC and sent him to [facility] EKG revealed pt remained in AFIB (I suspect RVR since he was given a Cardizem bolus). Hr improved and he was discharged on same Cardizem CD with follow up today. he continues to experience palpitations, but denies any CP, dizziness, SOB, WHITE, increased BLE edema, orthopnea, PND or syncope. EKG obtained today AFIB 90's. HR on arrival was 123. will check echo, stress test, home sleep study and labs. w ill follow up in 1 month and determine if remains in AFIB, then consider BURT/CV or CV. will arrange f/u with Dr. Americo Alva NP Electrophysiology Mamie man MD Electrophysiology Mamie man MD Electrophysiology Mamie man MD Electrophysiology Mamie man MD Electrophysiology: s /p successful CV 11/2020 s /p unsuccessful CV after 3 shocks 05/20/22 s tarted flecainide this weekend, remains in afib today H is updated medication list for this problem includes: Flecainide 100 Mg Tablet (Flecainide) ..... Take 1 tablet by mouth twice a day. start taking wednesday 06/20 Mamie Mejía MD Electrophysiology Jethro Maguire Electrophysiology:s/ p successful CV 11/2020 s /p unsuccessful CV after 3 shocks 05/20/22 will continue cardizem CD and start flecainide 100mg BID starting monday night 06/19. pt will return to office on 06/20 for EKG. will arrange for cardioversion on friday 06/22. will arrange for afib ablation. will obtain pre-ablation CT and pre-procedure labs. will start magnesium oxide 400mg BID. His updated medication list for this problem includes: Flecainide 100 Mg Tablet (Flecainide) ..... Take 1 tablet by mouth twice a day. start taking wednesday 06/20 Valerie Alva NP Cardiology Kimani Driscoll MD Cardiology Kimani Driscoll MD Cardiology Kimani Driscoll MD Cardiology:Awaiting approval for sleep study Kimani Driscoll MD Cardiology Kimani Driscoll MD Cardiology Kimani Driscoll MD Cardiology Kimani Driscoll MD Cardiology Kimani Driscoll MD Cardiology:Has sever e sleep apnea. Arranging CPAP titration study. Kimani Driscoll MD Cardiology:Will do BURT/CV. Kimani Driscoll MD :nml a1c Julio Polanco MD :nml a1c and tsh Julio Mccurdy Cardiology:encourage d heart healthy diet, decreased carbs, more veggies, and lean meats, fish and turkey/chicken. Valerie Alva NP Cardiology:will check sleep stud y Valerie Alva NP Cardiology:11/2020 he was admitted at [facility] since new onset AFIB RVR, for which he had BURT/CV and was started on Cardizem CD and eliquis. pt states that he stopped taking both shortly after discharge. he states prior to onset of symptoms last Monday, he reports that he would experience palpitations maybe 1 or 2 times per months, only lasting a second or 2. Last Monday03/22/22 he reports palpitations that started around 10pm. pt states that 'normally it will straight it out on own.' He states that this time he continued to have palpitations with assciated 'panic attacks' that continued until Jimy 7/17. pt presented to [facility]. EKG revealed AFIB and was sent home on Cardizem CD 120mg and asa. pt followed up [facility] PCP, Dr. Flaherty on Monday. he was concerned that pt was not on OAC and sent him to [facility] EKG revealed pt remained in AFIB (I suspect RVR since he was given a Cardizem bolus). Hr improved and he was discharged on same Cardizem CD with follow up today. he continues to experience palpitations, but denies any CP, dizziness, SOB, WHITE, increased BLE edema, orthopnea, PND or syncope. EKG obtained today AFIB 90's. HR on arrival was 123. will check echo, stress test, home sleep study and labs. w ill follow up in 1 month and determine if remains in AFIB, then consider BURT/CV or CV. will arrange f/u with Dr. Americo Alva NP Cardiology hospital follow up Ra blair Driscoll MD Cardiology hospital follow up Ra blair Driscoll MD [facility] hospital follow up Ra blair Driscoll MD Date Name BASIC METABOLIC PANE L W/EGFR CBC (INCLUDES DIFF/P LT) PARTIAL THROMBOPLAST IN TIME, ACTIVATED PROTHROMBIN TIME WIT H INR EP Study w/anesthesi a ABLATION w/ Anesthes ia MAGNESIUM PROTHROMBIN TIME WIT H INR LIPID PANEL CBC (INCLUDES DIFF/P LT) BASIC METABOLIC PANE L W/EGFR CT Cardiac with cont rast (Pre-Ablation) ABLATION w/ Anesthes ia Cardioversion - [facility] MAGNESIUM BASIC METABOLIC PANE L W/EGFR PROTHROMBIN TIME WIT H INR BURT/CV - [facility] IRON AND TOTAL IRON BINDING CAPACITY FERRITIN CBC (INCLUDES DIFF/P LT) VITAMIN B12 Vitamin D, 25-Hydrox y CRP, high sensitivit y LIPID PANEL TSH, free T4, total T3 HEMOGLOBIN A1c PROBNP, N TERMINAL BASIC METABOLIC PANE L W/EGFR Stress Routine Complete Echo Sleep Study Home EKG Sleep Study Home Phone 5-10 HISTORY OF PROCEDURES Procedure Date Procedure Name Provider Procedure Notes S tatus EKG Mamie Mejía MD comp leted EKG Mamie Mejía MD comp leted EKG Mamie Mejía MD comp leted EKG Kimani Driscoll MD complete d
--- OUTSIDE RECORDS SUMMARY | 2024-10-10 15:11 | XMS_ITS | Patient Health Summary ---
Author Organization [facility] Address [address] [address] Care Team Providers Care Emergency Doctor Name Role Phone Unknown, Provider Primary Care Provider Unavaila ble Note from [facility],non-owned Affiliates and Associated Physician Practices is amultiple site organization consisting of ambulatory clinics and hospital sitesin [place], [place], [place] and [place]. This disclosure is being madepursuant to the Care Everywhere program and may not contain all information available regarding this patient. Last updated 18.[facility] Bulu Box Allergies No known active allergies Medications * Be aware that medications may not be up to date on this document. Alwaysverify current medications with the patient. * amiodarone (Cordarone) 200 MG tablet(Started 12/14/2023) Take 1 (one) tablet by mouth 2 times daily * tirzepatide (Mounjaro) 5 MG/0.5ML injection Inject 5 (five) mg subcutaneously every 7 days Reasons: Weight Loss * apixaban (Eliquis) 5 MG tablet Take 1 (one) tablet by mouth 2 times daily * prednisoLONE acetate (Pred Forte) 1 % ophthalmic suspension(Started 09/25/2024) Instill 1 (one) drop into right eye 4 times daily * nepafenac (Nevanac) 0.1 % ophth suspension(Started 09/25/2024) Instill 1 drop into right eye 4 times daily * moxifloxacin (Vigamox) 0.5 % ophthalmic solution(Started 09/25/2024) Instill 1 (one) drop into right eye 4 times daily * rosuvastatin (Crestor) 20 MG tablet(Started 10/01/2024) * prednisoLONE acetate (Pred Forte) 1 % ophthalmic suspension(Started 10/09/2024) Instill 1 (one) drop into left eye 4 times daily * nepafenac (Nevanac) 0.1 % ophth suspension(Started 10/09/2024) Instill 1 drop into left eye 4 times daily * moxifloxacin (Vigamox) 0.5 % ophthalmic solution(Started 10/09/2024) Instill 1 (one) drop into left eye 4 times daily * brimonidine (Alphagan) 0.2 % ophthalmic solution(Started 10/09/2024) Instill 1 (one) drop into left eye 3 times daily Ended Medications* dilTIAZem coated beads 24hr (Cardizem CD) 120 MG capsule (Started 08/11/2023)(Discontinued) Take 1 (one) capsule by mouth once daily * Tiadylt ER 120 MG capsule(Started 12/14/2023)(Discontinued) Take 1 (one) capsule by mouth once daily * rosuvastatin (Crestor) 20 MG tablet(Started 12/14/2023)(Discontinued) Take 1 (one) tablet by mouth once daily * Jardiance 10 MG tablet(Started 09/26/2023)(Discontinued) Take 1 (one) tablet by mouth once daily * apixaban (Eliquis) 5 MG tablet(Discontinued) Take 1 (one) tablet by mouth 2 times daily Active Problems No known active problems Social History Tobacco Use Types Packs/Day Years [...] Comments Blood Pressure 114/78 10/08/2024 8:10 AM ARMOR RECONNAISSANCE SPECIALIST Pulse 70 10/08/2024 8:10 AM ARMOR RECONNAISSANCE SPECIALIST Temperature 36.3 ??C (97.3 ??F) 10/08/2024 8:00 AM CS T Respiratory Rate 14 10/08/2024 8:10 AM ARMOR RECONNAISSANCE SPECIALIST Oxygen Saturation 96% 10/08/2024 8:10 AM ARMOR RECONNAISSANCE SPECIALIST Inhaled Oxygen Concentration - - Weight 146.4 kg (322 lb 12.8 oz) 10/08/2024 6:26 AM ARMOR RECONNAISSANCE SPECIALIST Height 182.9 cm (6') 10/08/2024 6:26 AM ARMOR RECONNAISSANCE SPECIALIST Body Mass Index 43.78 10/08/2024 6:26 AM ARMOR RECONNAISSANCE SPECIALIST Medical Devices Implanted Type Area Stencil Typist Device Identifier Shelf Expiration Date Model / Serial / Lot Clareon Iol Aspheric Absorbing Iol +20.5 D Implanted:Qty: 1 on 09/24/2024 by Piyush Lafleur MD at [facility] Implant Non-Ortho Right: Eye [employer] 07/05/2027 CCA0T0 / [id number] / N/A Clareon Iol [id number] 21.5 Implanted:Qty: 1 on 10/08/2024 by Piyush Lafleur MD at [facility] Left: Eye 06/20/2027 CCA0T0 / [id number] / Procedures * ND REMV CATARACT EXTRACAP,INSERT LENS(Performed 10/08/2024) Performed for Combined forms of age-related cataract of both eyes * ND REMV CATARACT EXTRACAP,INSERT LENS(Performed 09/24/2024) Performed for Combined forms of age-related cataract of both eyes * CORNEAL TOPOGRAPHY UNI/BI(Performed 05/15/2024) Performed for Combined forms of age-related cataract of both eyes * FUNDUS PHOTO BOTH EYES(Performed 12/26/2023) Performed for Right retinal detachment Results * CORNEAL TOPOGRAPHY UNI/BI (05/15/2024 9:31 AM CDT) Anatomical Region Laterality Modality Head External-Camera Photography Narrative 05/15/2024 10:17 AM CDT Images from the original result were not included. Piyush Lafleur MD OPHTHALMOLOGY SCHED ORD W PACS * FUNDUS PHOTO BOTH EYES (12/26/2023 8:50 AM CDT) Anatomical Region Laterality Modality Head External-Camera Photography Narrative 12/26/2023 9:42 AM CDT Color fundus photos OD and OS. ??OS shows no holes, breaks or tears. ??OD has some old chorioretinal scaring and evidence of previous RD Mike Jaffe OD OPHTHALMOLOGY SCHED ORD W PACS Care Teams Emergency Doctor Relationship Specialty Start Date End Date Unknown, Provider PCP - General 12/26/23
--- OUTSIDE RECORDS SUMMARY | 2024-10-10 15:11 | XMS_ITS | Encounter Summary ---
Author Organization [facility] Address [address] [address] Care Team Providers Care Cigarette Stamper Name Role Phone Unknown, Provider Primary Care Provider Unavaila ble Reason for Visit * Reason Comments Post-Op Encounter Details Date Type Department Care Team (Late st Contact Info) Description 10/09/2024 9:30 AM CHILD THERAPIST Office Visit [facility] - Ophthalmology [address] [place] [phone] Piyush Lafleur MD [address] [place] [address] [place] [phone] Postop check (Primary Dx) Social History Tobacco Use Types Packs/Day Years Used Date Smoking Tobacco: Never Smokeless Tobacco: Never Alcohol Use Standard Drinks/Week Comments Not Currently 0 (1 standard drink = 0.6 oz pur e alcohol) NOT FOR 2 YEARS Sex and Gender Information Value Date Recorded Sex Assigned at Not on file Gender Identity Not on file Sexual Orientation Not on file documented as of this encounter Patient Instructions * Patient Instructions* Graeme Geller MD - 10/09/2024 10:02 AM CHILD THERAPIST In the LEFT eye (after surgery): Eye Drop Medicine Name Color of Cap Instructions Nevanac Giles Four times per day Prednisolone Hermosa Four times per day Vigamox Diaz Four times per day Brimonidine Purple Three times per day Please wait 3-5 minutes between drops. Continue taking your other eye drops as previously scheduled unless your doctor tells you to take them differently. D THERAPIST documented in this encounter Progress Notes * Piyush Lafleur MD - 10/09/2024 11:26 AM CST Patient seen and examined with resident. I confirm history, exam, assessment and plan. Piyush Lafleur MD 10/09/2024 11:26 AM D THERAPIST * Graeme Geller MD - 10/09/2024 9:45 AM CST Ophthalmology Office Note Subjective: Chief Complaint Patient presents with Post-Op Tomas Ceja is a 63 year old male here for post-op visit. S/p CE/PCIOL OS 10/08/24. S/p CE/PCIOL OD 09/24/24. Drops: PF/Moxi/Nevanac QID OU Vision is blurry in the right eye. Left eye vision is well. No eye pain. No flashes/floaters. Past History: Past Medical History: Diagnosis Date Atrial fibrillation (HCC) Sleep apnea NO CPAP Past Surgical History: Procedure Laterality Date Cataract Removal Right 09/24/2024 Right; Cataract extraction with intraocular lens implanation, RIGHT EYE Cataract Removal Left 10/08/2024 Left; Cataract extraction with intraocular lens implanation, LEFT EYE No family history on file. Current Outpatient Medications Medication Sig Dispense Refill amiodarone (Cordarone) 200 MG tablet Take 1 (one) tablet by mouth 2 times daily apixaban (Eliquis) 5 MG tablet Take 1 (one) tablet by mouth 2 times daily moxifloxacin (Vigamox) 0.5 % ophthalmic solution Instill 1 (one) drop into left eye 4 times daily moxifloxacin (Vigamox) 0.5 % ophthalmic solution Instill 1 (one) drop into right eye 4 times daily nepafenac (Nevanac) 0.1 % ophth suspension Instill 1 drop into left eye 4 times daily nepafenac (Nevanac) 0.1 % ophth suspension Instill 1 drop into right eye 4 times daily prednisoLONE acetate (Pred Forte) 1 % ophthalmic suspension Instill 1 (one) drop into left eye 4 times daily prednisoLONE acetate (Pred Forte) 1 % ophthalmic suspension Instill 1 (one) drop into right eye 4 times daily rosuvastatin (Crestor) 20 MG tablet tirzepatide (Mounjaro) 5 MG/0.5ML injection Inject 5 (five) mg subcutaneously every 7 days Reasons:Weight Loss No current facility-administered medications for this visit. No Known Allergies Objective: Base Eye Exam Visual Acuity (Snellen - Linear) Right Left Dist sc 20/20 20/70 Dist ph sc 20/25 Tonometry (Tonopen, 9:39 AM) Right Left Pressure 24 26 Study Findings 10/09/2024: Assessment/Plan: POD1 s/p CE/IOL (CCA0T0 +21.5 D), left eye 10/09/24 - VA sc 20/70, ph 20/25 - IOP 26, rechecked 30 - Cornea clear - Lens centered - Good red reflex - Expected post-op inflammation s/p CE/IOL (CCA0T0 +20.5 D) OD (09/24/24) - VA 20/20, IOP 19 - Cornea clear, resolving postop inflammation, PCIOL in good position - Doing well, pleased with results Other ophthalmic issues: Visually significant cataract OS - Scheduled for surgery 10/08/24 History of retinal detachment OD - Unknown type of surgery, approx 4 y ago at [facility] Plan: - Use the following eye drops in left eye - wait 5 min between each drop Prednisolone (shake well) 4 times daily Moxifloxacin 4 times daily until out Nevanac 4 times daily until out Start brimonidine TID OS for elevated pressure in acute post-op phase today - For the first 1-2 weeks, eye shield at night, no bending over - RD/endophthalmitis symptoms reviewed, patient instructed to call immediately if symptoms occur - FOLLOW-UP: 1 week - or sooner as needed Patient verbalizes understanding of the above assessment/plan, patient's questions were answered tothe best of my ability, and patient agrees with the plan. Patient was seen with Dr. Lafleur. Allie Geller MD Ophthalmology Resident 10/09/2024 D THERAPIST documented in this encounter Plan of Treatment Upcoming Encounters Date Type Department Care Team (Late st Contact Info) Description 10/16/2024 3:00 PM CHILD THERAPIST Office Visit [facility] - Ophthalmology [facility] [place] [phone] Piyush Lafleur MD [address] [place] [address] [place] [phone] documented as of this encounter Visit Diagnoses Diagnosis Postop check- Primary Follow-up examination, following unspecified surgery documented in this encounter Care Teams Cigarette Stamper Relationship Specialty Start Date End Date Unknown, Provider PCP - General 12/26/23 documented as of this encounter
--- OUTSIDE RECORDS SUMMARY | 2024-10-10 15:11 | XMS_ITS | Referral Summary ---
Author Organization [facility] Address [address] [place] [address] Care Team Providers Care Automotive Service Professional Name Role Phone Unknown, Provider Primary Care Provider Unavaila ble Source Comments [facility],non-owned Affiliates and Associated Physician Practices is amultiple site organization consisting of ambulatory clinics and hospital sitesin [place], [place], [place] and [place]. This disclosure is being madepursuant to the Care Everywhere program and may not contain all information available regarding this patient. Last updated 18.[facility] Encounters Date Type Department Care Team Description 10/09/2024 Travel 10/09/2024 9:30 AM JOB ANALYSIS MANAGER Office Visit [facility] - Ophthalmology [facility] [place] [phone] Piyush Lafleur MD Postop check (Primary Dx) 10/08/2024 Travel 10/08/2024 7:25 AM JOB ANALYSIS MANAGER - 10/08/2024 8:15 AM JOB ANALYSIS MANAGER Surgery [facility] [address] [place] [phone] Piyush Lafleur MD Cataract extraction with intraocular lens implanation, LEFT EYE 10/08/2024 7:25 AM JOB ANALYSIS MANAGER Anesthesia Event [facility] [address] [place] [phone] Tom Inman MD Rinderer, Mallory, SYSTEMATIC THEOLOGY PROFESSOR-WAITER/WAITRESS ROOM SERVICE 10/08/2024 6:08 AM JOB ANALYSIS MANAGER - 10/08/2024 8:24 AM JOB ANALYSIS MANAGER Hospital Encounter [facility] [address] [place] [phone] Piyush Lafleur MD Surgery General Discharge Disposition: Home or Self Care 10/02/2024 Travel 10/02/2024 3:00 PM JOB ANALYSIS MANAGER Office Visit [facility] - Ophthalmology [address] [place] [phone] Piyush Lafleur MD Postop check (Primary Dx) 09/25/2024 Travel 09/25/2024 9:30 AM JOB ANALYSIS MANAGER Office Visit [facility] - Ophthalmology [address] [place] [phone] Piyush Lafleur MD Postop check (Primary Dx) 09/24/2024 Travel 09/24/2024 7:25 AM JOB ANALYSIS MANAGER - 09/24/2024 8:15 AM JOB ANALYSIS MANAGER Surgery [facility] [address] [place] [phone] Piyush Lafleur MD Cataract extraction with intraocular lens implanation, RIGHT EYE 09/24/2024 7:26 AM JOB ANALYSIS MANAGER Anesthesia Event [facility] [address] [place] [phone] Song Stubbs MD Rinderer, Mallory, APRN-WAITER/WAITRESS ROOM SERVICE 09/24/2024 6:06 AM JOB ANALYSIS MANAGER - 09/24/2024 8:45 AM JOB ANALYSIS MANAGER Hospital Encounter [facility] [address] [place] [phone] Piyush Lafleur MD Surgery General Discharge Disposition: Home or Self Care from Last 3 Months Allergies No known active allergies Medications * [...] Clean-Up) Active Problems No known active problems Social [...] Comments Blood Pressure 114/78 10/08/2024 8:10 AM JOB ANALYSIS MANAGER Pulse 70 10/08/2024 8:10 AM JOB ANALYSIS MANAGER Temperature 36.3 ??C (97.3 ??F) 10/08/2024 8:00 AM CS T Respiratory Rate 14 10/08/2024 8:10 AM JOB ANALYSIS MANAGER Oxygen Saturation 96% 10/08/2024 8:10 AM JOB ANALYSIS MANAGER Inhaled Oxygen Concentration - - Weight 146.4 kg (322 lb 12.8 oz) 10/08/2024 6:26 AM JOB ANALYSIS MANAGER Height 182.9 cm (6') 10/08/2024 6:26 AM JOB ANALYSIS MANAGER Body Mass Index 43.78 10/08/2024 6:26 AM JOB ANALYSIS MANAGER Plan of Treatment Upcoming Encounters Date Type Department Care Team (Late st Contact Info) Description 10/16/2024 3:00 PM JOB ANALYSIS MANAGER Office Visit [facility] - Ophthalmology [address] [place] [phone] Piyush Lafleur MD [address] [place] [address] [place] [phone] Medical Devices Implanted Type Area Assembler 1St Shift Device Identifier Shelf Expiration Date Model / Serial / Lot Clareon Iol Aspheric Absorbing Iol +20.5 D Implanted:Qty: 1 on 09/24/2024 by Piyush Lafleur MD at [facility] Implant Non-Ortho Right: Eye [employer] 07/05/2027 CCA0T0 / [id number] / N/A Clareon Iol [id number] 21.5 Implanted:Qty: 1 on 10/08/2024 by Piyush Lafleur MD at [facility] Left: Eye 06/20/2027 CCA0T0 / [id number] / Procedures Procedure Name Priority Date/Time Associated Diagnosis Comments MI REMV CATARACT EXTRACAP,INSERT LENS 10/08/2024 7:19 AM JOB ANALYSIS MANAGER Combined forms of age-related cataract of both eyes Special Needs SUPINE, MAC LOCAL MI REMV CATARACT EXTRACAP,INSERT LENS 09/24/2024 7:21 AM JOB ANALYSIS MANAGER Combined forms of age-related cataract of both eyes Special Needs SUPINE, MAC LOCAL from Last 3 Months Care Teams Automotive Service Professional Relationship Specialty Start Date End Date Unknown, Provider PCP - General 12/26/23
--- OUTSIDE RECORDS SUMMARY | 2024-10-10 15:11 | XMS_ITS | Encounter Summary ---
Author Organization [facility] Address [address] [address] Care Team Providers Care Masticator Name Role Phone Unknown, Provider Primary Care Provider Unavaila ble Encounter Details Date Type Department Care Team (Latest Contact Info) Description 10/09/2024 Travel Social History Tobacco Use Types Packs/Day Years [...] on file documented as of this encounter Plan of Treatment Upcoming Encounters Date Type Department Care Team (Late st Contact Info) Description 10/16/2024 3:00 PM RADIO ENGINEERING TEACHER Office Visit [facility] - Ophthalmology [address] [place] [phone] Piyush Lafleur MD [address] [place] [address] [place] [phone] documented as of this encounter Visit Diagnoses Not on filedocumented in this encounter Care Teams Masticator Relationship Specialty Start Date End Date Unknown, Provider PCP - General 12/26/23 documented as of this encounter
--- NOTE | 2024-10-11 07:33 | WPDPFTINT ---
PFT Procedure Performed PFT Procedure Performed Plethysmography (Lung Vol) Diffusing Cap (DLCO) Flow Vol Loop Spirometry w/o Bronchodil PFT Interpretation This is a pulmonary function test with spirometry, plethysmography and diffusing capacity. The test was performed and results interpreted in accordance with the 2019 and 2005 ATS/ERS Task Force guidelines respectively using the Global Lung Function Initiative-2012 reference equations. Patient demonstrated good effort and cooperation. Reproducibility criteria were met. The quality of the spirometry maneuver was Grade A. Findings: Spirometry: The contour the inspiratory and expiratory flow tracing is normal. The FVC is 4.13 L, 87% predicted. The FEV1 is 3.27 L, 90% predicted. The a FEV1: FVC ratio 79%. Plethysmography: The total lung capacity is 6.12 L, 82% predicted. The functional residual capacity is 2.44 L, 62% predicted. The residual volume is 1.99 L, 81% predicted. Diffusing capacity: The diffusing capacity unadjusted for hemoglobin and carboxyhemoglobin is 25.4, 90% predicted. The diffusing capacity adjusted for alveolar volume is 4.45, 112% predicted. Impression: The spirometry is normal without evidence of an obstructive abnormality. The total lung capacity and residual volume are normal with a decreased functional residual capacity. This is an abnormal but nonspecific lung volume pattern. The diffusing capacity is normal. There are no prior studies for comparison
== END 2024-10-10 14:38 | disposition home or self-care (01) ==
LOC: ANHPFT 14:38
PROVIDERS: PCP Nurse Practitioner Family; Visit Provider Internal Medicine
DX: I48.91 Unspecified atrial fibrillation (principal)
CPT/HCPCS: 94375; 94726; 94729

== ENCOUNTER 2025-06-16 14:24 | Outpatient (CLI) | payer BC, SELFPAY ==
--- NOTE | ~2025-06-16 | US_ITS ---
Clinical history:Other injury of nonspecific body region EXAM:Ultrasound soft tissue lower extremity left TECHNIQUE:Multiple static grayscale and color Doppler images were obtained of the areas of concern about the left calf. Comparisons:None available FINDINGS: Nonspecific edema and skin thickening in the areas of concern about the left calf. No loculated fluid collection or solid mass identified. IMPRESSION: 1. Nonspecific edema and skin thickening in the areas of concern about the left calf. If symptoms persist or worsen, consider a short-term follow-up study or CT/MRI imaging for further assessment. Reviewed, dictated and finalized at location Q.
--- OUTSIDE RECORDS SUMMARY | 2025-06-16 15:13 | XMS_ITS | Clinical Summary ---
Author Organization [facility] Healthcare Address [facility] [place] [address] Care Team Providers Care Bank Consultant Name Role Phone Constanza Stanley NP Primary Care Provider [phone] Jose Luis Castro MD Unavailable [phone] Allergies No known active allergies Medications apixaban (ELIQUIS) 5 mg tablet Take 1 tablet (5 mg total) by mouth 2 (two) times a day Active rosuvastatin (CRESTOR) 20 mg tablet Take 1 tablet (20 mg total) by mouth nightly 90 tablet 3 10/01/2024 6 Active metoprolol XL (TOPROL-XL) 50 mg extended release tablet Take 1 tablet (50 mg total) by mouth daily 30 tablet 11 10/21/2024 6 Active Wegovy 0.5 mg/0.5 mL auto-injector 03/18/2025 Activ e Active Problems Problem Noted Date Diagnosed Date Atrial fibrillation 03/21/2025 Assessment & Plan (05/03/2025 7:25 PM CDT): -S/p catheter ablation with Dr. Castro -remains compliant on apixaban and metoprolol -Recommend continued therapy with apixaban for thromboprophylaxis -EKG demonstrates atrial fibrillation with controlled ventricular rates -We discussed management of atrial fibrillation in the healing phase post ablation. -We will schedule the patient for: Cardioversion with Dr. Castro Follow up 1 month post cardioversion Obstructive sleep apnea 01/09/2025 Longstanding persistent atrial fibrillation 06/11 Overview (06/24/2022): Added automatically from request for surgery [id number] Encounters Date Type Department Care Team Description 05/14/2025 3:36 PM CDT Anesthesia Event [facility] [address] [place] [phone] Tad Solomon DO [place], Arthur Stanley, 05/14/2025 2:07 PM CDT - 05/14/2025 11:59 PM CDT Hospital Encounter [facility] [address] [place] [phone] Jose Luis Castro MD Atrial fibrillation, unspecified type (HCC) Discharge Disposition: Discharge to home or self care 05/02/2025 [facility] [address] [place] [address] [phone] Jose Luis Castro MD Atrial fibrillation, unspecified type (HCC) (Primary Dx) 05/01/2025 9:30 AM CDT Office [facility] [address] [place] [phone] Brandi Kelly NP Persistent atrial fibrillation (HCC) (Primary Dx) 04/03/2025 11:18 AM CDT Anesthesia Event [facility] [address] [place] [phone] Pritesh Easley DO 04/03/2025 9:40 AM CDT - 04/03/2025 12:00 PM CDT Surgery [facility] [address] [place] [phone] Jose Luis Castro MD ABLATION ATRIAL FIBRILLATION (A-FIB) VIA PULMONARY VEIN ISOLATION [id number] 04/03/2025 7:26 AM CDT - 04/03/2025 4:54 PM CDT Hospital Encounter [facility] [address] [place] [phone] Jose Luis Castro MD Atrial fibrillation, unspecified type (HCC) Discharge Disposition: Discharge to home or self care 03/21/2025 Telephone [facility] [address] [facility] [address] [place] [address] Tiffany Carlos B.A. from Last 3 Months Surgical History Surgery Date Site/Laterality Comments CARDIAC ELECTROPHYSIOLOGY PROCEDURE 04/03/2025 N/A Procedure: ABLATION ATRIAL FIBRILLATION (A-FIB) VIA PULMONARY VEIN ISOLATION [id number]; Surgeon: Jose Luis Castro MD; Location: [facility]; Service: Cardiovascular; Laterality: N/A; Medical devices from this surgery are in the Medical Devices section. CARDIAC CATHETERIZATION 04/03/2025 N/A Procedure: ULTRASOUND GUIDANCE FOR VASCULAR ACCESS S&I [id number]; Surgeon: Jose Luis Castro MD; Location: [facility]; Service: Cardiovascular; Laterality: N/A; Medical devices from this surgery are in the Medical Devices section. Medical History Medical History Date Comments Atrial fibrillation (HCC) Congestive heart failure (CHF) (HCC) Hyperlipidemia Cataracts, bilateral History of retinal detachment Social History Tobacco Use Types Packs/Day Years Used Date Smoking Tobacco: Never Tobacco Cessation:Counseling Given: Not Answered AUDIT-C Answer Date Recorded Q1: How often do you have a drink containing alc ohol? Never 04/03/2025 Average Number of Drinks Not on file 025 Frequency of Binge Drinking Not on file 03/12 Personal Safety Answer Date Recorded Have you ever been in or are you currently in a harmful physical or emotional relationship or is someone making you feel afraid or unsafe? Denies 05/14/2025 Sex and Gender Information Value Date Recorded Sex Assigned at Not on file Legal Sex Male 9:01 AM CDT Gender Identity Not on file Sexual Orientation Not on file Obstetrics History Last Filed Vital Signs Vital Sign Reading Time Taken Comments Blood Pressure 117/68 05/14/2025 4:09 PM CDT Pulse 71 05/14/2025 4:11 PM CDT Temperature 36.4 C (97.5 F) 04/03/2025 1:37 PM CDT Respiratory Rate 18 05/14/2025 4:11 PM CDT Oxygen Saturation 93% 05/14/2025 4:11 PM CDT Inhaled Oxygen Concentration - - Weight 135.2 kg (298 lb) 05/01/2025 9:23 AM CDT Height 182.9 cm (6') 05/01/2025 9:23 AM CDT Body Mass Index 40.42 05/01/2025 9:23 AM CDT Plan of Treatment Health Maintenance Due Date Last Done Comments Colon Cancer Screening-Colonoscopy 1960 Depression Screening 1960 Hepatitis C Screening 1958 Prostate Cancer Screening-PSA 1958 DTaP/Tdap/Td Vaccine (1 - Tdap) 1969 Hepatitis B Screening 1976 Pneumococcal vaccine 65+ (1 of 1 - PCV) 2008 Zoster Vaccine (1 of 2) 2008 Well Visit 65+ 11/28/2023 Covid-19 Vaccine (2 - season) 05/12/202507/2021 Influenza Vaccine (#1) 2025 Fall Risk Assessment 04/03/2026 04/03/2025 Medical Devices Implanted Type Area Ibm Mainframe Systems Programmer Device Identifier Shelf Expiration Date Model / Serial / Lot [employer] Vascade Mvp 6-12fr Venous Closure [id number] - [id number] - [id number] Implanted:Qty: 1 on 04/03/2025 by Jose Luis Castro MD at [facility] [employer] 11/21/2026 [id number] [id number] / [id number] / [id number] [employer] Device Vascular Closure Vascade Mvp Xl 10-12fr Venous Strl [id number] - [id number] - [id number] Implanted:Qty: 1 on 04/03/2025 by Jose Luis Castro MD at [facility] [employer] 01/15/2027 [id number] / [id number] / [id number] [employer] Device Vascular Closure Femoral Artery Bioabsorbable Dual Method Vascade 6-7fr Collagen [id number] - [id number] - [id number] Implanted:Qty: 1 on 04/03/2025 by Jose Luis Castro MD at [facility] [employer] 01/02/2027 [id number] 5U / [id number] / [id number] [employer] Device Closure Vascade Od5 Fr Femoral Artery [id number] - [id number] - [id number] Implanted:Qty: 1 on 04/03/2025 by Jose Luis Castro MD at [facility] [employer] 12/26/2026 [id number] 05U / [id number] / [id number] Procedures Procedure Name Priority Date/Time Associated Diagnosis Comments ECG 12-LEAD Routine 05/14/2025 3:49 PM CDT ECG 12-LEAD Routine 05/14/2025 2:26 PM CDT CARDIOVERSION Routine 05/14/2025 2:07 PM CDT Atrial fibrillation, unspecified type (HCC) ECG 12-LEAD Routine 05/05/2025 9:53 AM CDT Persistent atrial fibrillation (HCC) VASCULAR ACCESS US GUIDANCE Routine 04/03/2025 1:15 PM CDT Atrial fibrillation, unspecified type (HCC) ELECTROPHYSIOLOGIC EVALUATION (EPS) / ATRIAL FIBRILLATION ABLATION VIA PULMONARY VEIN ISOLATION Routine 04/03/2025 1:15 PM CDT Atrial fibrillation, unspecified type (HCC) POCT ACTIVATED CLOTTING TIME, HIGH RANGE Routine 04/03/2025 1:05 PM CDT POCT ACTIVATED CLOTTING TIME, HIGH RANGE Routine 04/03/2025 12:51 PM CDT POCT ACTIVATED CLOTTING TIME, HIGH RANGE Routine 04/03/2025 12:33 PM CDT POCT ACTIVATED CLOTTING TIME, HIGH RANGE Routine 04/03/2025 12:18 PM CDT CA AN PROCEDURE PLACEHOLDER Routine 04/03/2025 11:36 AM CDT CA AN ELECTIVE ENDOTRACHEAL AIRWAY Routine 04/03/2025 11:36 AM CDT ECG 12-LEAD STAT 04/03/2025 8:13 AM CDT EGFR STAT 04/03/2025 8:00 AM CDT DIFFERENTIAL AUTO STAT 04/03/2025 8:0 0 AM CDT TYPE AND SCREEN STAT 04/03/2025 8:00 AM CDT BASIC METABOLIC PANEL STAT 04/03/2025 8:00 AM CDT CBC WITH AUTO DIFFERENTIAL STAT 04/03/2025 8:00 AM CDT from Last 3 Months Results * ECG 12 lead (05/14/2025 3:49 PM CDT) 05/14/2025 3:49 PM CDT Narrative [facility] - 05/15/2025 7:09 AM CDT Vent Rate: 63 bpm RR Interval: 947 msec CA Interval: 205 msec QRS Duration: 121 msec QT Interval: 414 msec QTC Interval: 421 msec P-R-T [place]: 28 - 20 - 8 degrees IMPRESSION: SINUS RHYTHM POSSIBLE RIGHT VENTRICULAR CONDUCTION DELAY POSSIBLE ANTERIOR MYOCARDIAL INFARCTION , PROBABLY OLD INFERIOR MYOCARDIAL INFARCTION , PROBABLY OLD ABNORMAL ECG Electronically Signed By: Pérez Zendejas MD [facility] us Jose Luis Castro MD ECG ORDERABLES Final Re sult [facility] * ECG 12 lead (05/14/2025 2:26 PM CDT) 05/14/2025 2:26 PM CDT Narrative [facility] - 05/15/2025 7:05 AM CDT Vent Rate: 96 bpm RR Interval: 622 msec CA Interval: 0 msec QRS Duration: 124 msec QT Interval: 378 msec QTC Interval: 432 msec P-R-T [place]: 0 - 32 - -3 degrees IMPRESSION: ATRIAL FIBRILLATION POSSIBLE RIGHT VENTRICULAR CONDUCTION DELAY POSSIBLE ANTERIOR MYOCARDIAL INFARCTION , OF INDETERMINATE AGE INFERIOR MYOCARDIAL INFARCTION , PROBABLY OLD ABNORMAL ECG Electronically Signed By: Pérez Zendejas MD [facility] Jose Luis Castro MD ECG ORDERABLES Final Re sult [facility] * CARDIOVERSION (05/14/2025 2:07 PM CDT) Anatomical Region Laterality Modality Echocardiography Impressions 05/14/2025 3:46 PM CDT Successful cardioversion with presybeterian of sinus rhythm RECOMMENDATIONS AND FOLLOW-UP: Continue apixaban 5 mg BID. Jose Luis Castro MD, [facility] [address] [place] [address], [address] [address] Narrative 05/14/2025 3:46 PM CDT CARDIOVERSION REPORT PROCEDURE(S): Synchronized direct current cardioversion INDICATION(S): Persistent atrial fibrillation CLINICAL HISTORY: Tomas Ceja is a 64 y.o. male who presents today for synchronized cardioversion. The benefits, risks, and alternatives of a direct current cardioversion were discussed at length with the patient. Specific procedural risks discussed included, but were not limited to: Sedation induced apnea and/or hypotension, aspiration, localized irritation and/or mild mendes from the defibrillator pads, and thromboembolic complications including stroke. The patient demonstrated a clear understanding of these issues during our discussion. All questions were answered. DESCRIPTION: After obtaining informed consent, continuous telemetry, pulse oximetry, and noninvasive blood pressure monitoring were applied. Deep sedation was provided by the Anesthesia Service. Synchronized direct current cardioversion was performed at 200 and 360 joules with successful presybeterian of sinus rhythm. COMPLICATIONS: None. us Jose Luis Castro MD CV CARDIAC SERVICES PROC EDURES Final Result * ECG 12 lead (05/05/2025 9:53 AM CDT) Result [facility] Brandi Kelly THERAPEUTIC SUPPORT STAFF ECG ORDERABLES Final Result * ELECTROPHYSIOLOGIC EVALUATION (EPS) / ATRIAL FIBRILLATION ABLATION VIA PULMONARY VEIN ISOLATION, VASCULAR ACCESS US GUIDANCE (04/03/2025 1:15 PM CDT) Anatomical Region Laterality Modality X-Ray Angiograph y Impressions 04/03/2025 1:50 PM CDT Persistent atrial fibrillation Successful isolation of all pulmonary veins RECOMMENDATIONS AND FOLLOW-UP: Return to postoperative recovery area with telemetry monitoring. Anticipate discharge to home later today. Follow-up: 4 weeks. Jose Luis Castro MD, [facility] [address] [place] [address], [address], [place] [address] Narrative 04/03/2025 1:50 PM CDT Table formatting from the original result was not included. Images from the original result were not included. ELECTROPHYSIOLOGY SERVICES REPORT PRIMARY PROCEDURE(S): Comprehensive electrophysiologic evaluation with AF ablation via pulmonary vein isolation ([id number]) ADD-ON PROCEDURE COMPONENTS: External Cardioversion ([id number]) INDICATION(S): Persistent atrial fibrillation ANESTHESIA TYPE: General CLINICAL HISTORY: Tomas Ceja is a very pleasant 64 y.o. male with persistent atrial fibrillation who now presents for a comprehensive electrophysiologic evaluation with AF ablation via pulmonary vein isolation. The benefits, risks, and alternatives of the procedure were discussed at length with the patient. Procedural risks discussed, included (but were not limited to): vascular injury; major bleeding; cardiac perforation; thromboembolic complications including pulmonary embolism and stroke; myocardial infarction; injury to the intrinsic cardiac conduction system necessitating permanent cardiac pacing; pulmonary vein stenosis; esophageal injury (which may be fatal); phrenic nerve palsy; and gastroparesis. The patient also understands that additional ablation procedures may be necessary to obtain optimal rhythm control. The patient demonstrated a clear understanding of these issues during our discussion. All questions were answered. DESCRIPTION: After obtaining informed consent, the patient was brought to the EP laboratory in a postabsorptive, nonsedated state. Peripheral IV access was established. Continuous ECG, noninvasive blood pressure monitoring, and pulse oximetry were initiated. Cardioversion patch electrodes were placed on the patient's chest and back. Sedation was administered per Anesthesia Services. The patient was sterilely prepared and draped in the usual manner. Bilateral inguinal access sites were infiltrated with 2% lidocaine. Vascular access was achieved using a micropuncture access needle via the modified Seldinger technique and utilizing ultrasound guidance. After placement of venous access sheaths, multipolar catheters were advanced to the His bundle recording position and coronary sinus. The patient arrived in the room in atrial fibrillation. Additional vascular access was obtained with insertion of 8 and 10 F sheaths. An intracardiac echocardiography (ICE) catheter catheter was positioned in the right atrium via the 10 F sheath. No left atrial appendage thrombus was visualized. A bolus and infusion of unfractionated heparin was initiated and the ACT was maintained at 350 - 400 seconds throughout the remainder of the case. Synchronized cardioversion was performed at 200 J for presybeterian of sinus rhythm. Access to the left atrium was obtained via a transseptal puncture made with a VersaCross transseptal introducer and RF guidewire under intracardiac echocardiographic (ICE) guidance. The transseptal introducer was exchanged over the guidewire for a 9 F deflectable sheath. A high density mapping catheter was introduced into the left atrium via the deflectable sheath and a 3D-electroanatomic endocardial shell and voltage map was created using the electroanatomical mapping system. A contact force sensing-enabled irrigated 3.5 mm tip catheter was introduced into the LA, and high-output pace mapping from the ablation catheter was used to trace the course of the right phrenic nerve. The ICE catheter was used to monitor for the development of any new pericardial effusion. Pre ablation voltage map RF lesions were delivered around the left- and right-sided PV antra utilizing short RF applications at power settings of 40-50 Terrell and with a maximum temperature cutoff of 45 C and maximum duration of 10-20 seconds; target contact force was 10-15 grams. An ensoETM cooling system was placed in the esophagus behind the left atrium for protective esophageal cooling. Entrance block within all pulmonary veins was confirmed by the absence of atrial electrograms within any segments of the veins distal to the antral lesion sets. Apparent exit block within all pulmonary veins was confirmed via pacing at multiple sites distal to the antral lesion sets at an amplitude of 20 mA and at a pulse-width of 2 msec. Voltage mapping confirmed isolation of all pulmonary vein antra. Post ablation voltage map and RF lesion markers Final induction attempts included: incremental atrial overdrive pacing and atrial extrastimuli, which resulted in induction of atrial fibrillation requiring performance of external synchronized cardioversion for presybeterian of sinus rhythm. Protamine was administered to bring the ACT down to < 220 seconds. and All venous sheaths were removed and hemostasis was achieved using Vascade closure devices. The patient was taken to the recovery area in stable condition. CONDUCTION INTERVALS: RR CA QRS QT AH HV Baseline: AF - 106 435 - - Final: 1042 178 116 457 88 67 ELECTROANATOMICAL MAPPING SYSTEM: Inveshareite X VASCULAR ACCESS SUMMARY: ? Right femoral vein: 9 F ? Left femoral vein: 5 F, 7 F, 10 F ESTIMATED BLOOD LOSS: 10 cc COMPLICATIONS: None. us Jose Luis Castro MD CV ELECTROPHYSIOLOGY PRO CS Final Result * (ABNORMAL) POC Activated Clotting Time, High Range (04/03/2025 1:05 PM CDT) ACT 358(H) 87 - 138 sec POC Performer [id number] [facility] Blood 04/03/2025 1:05 PM CDT 04/03/2025 1:05 PM CDT Jose Luis Castro MD LAB BLOOD ORDERABLES Fin al Result [facility] [address] Department [place] [address] * (ABNORMAL) POC Activated Clotting Time, High Range (04/03/2025 12:51 PM CDT) ACT 330(H) 87 - 138 sec POC Performer [id number] [facility] Blood 04/03/2025 12:5 1 PM CDT 04/03/2025 12:51 PM CDT us Jose Luis Castro MD LAB BLOOD ORDERABLES Fin al Result Performing Organization Address [facility] Co de Phone Number [facility] [address] [facility] [employer] [place], [place] [id number] * (ABNORMAL) POC Activated Clotting Time, High Range (04/03/2025 12:33 PM CDT) ACT 348(H) 87 - 138 sec POC Performer [id number] [facility] Blood 04/03/2025 12:3 3 PM CDT 04/03/2025 12:33 PM CDT Jose Luis Castro MD LAB BLOOD ORDERABLES Fin al Result Performing Organization Address [facility] Co de Phone Number [facility] [address] [facility] [place] [address] * (ABNORMAL) POC Activated Clotting Time, High Range (04/03/2025 12:18 PM CDT) ACT 261(H) 87 - 138 sec POC Performer [id number] [facility] Blood 04/03/2025 12:1 8 PM CDT 04/03/2025 12:18 PM CDT Jose Luis Castro MD LAB BLOOD ORDERABLES Fin al Result Performing Organization Address [facility] Co de Phone Number [facility] [address] [facility] [place] [place] [address] * CA AN ELECTIVE ENDOTRACHEAL AIRWAY, CA AN PROCEDURE PLACEHOLDER (04/03/2025 11:36 AM CDT) Narrative Genesis Carrasco CRNA - 04/03/2025 11:36 AM CDT Genesis Carrasco CRNA 04/03/2025 11:37 AM Airway Patient location: OR Urgency: elective Indications for airway management: anesthesia Difficult airway: no Staff: Supervising provider: Pritesh Easley DO Placed by: RECTIFICATION PRINTER: Genesis Carrasco CRNA Emergent airway documentation: Risks and benefits discussed: yes Consent obtained: yes Consent given by: patient Airway prep: Preoxygenated: yes Patient position: sniffing Mask difficulty assessment: 0 - not attempted Sedation level during airway: GA Final airway details: Final airway type: endotracheal airway Tube type: ETT ETT size: 8.0 mm Cuffed: yes Technique used for successful ETT placement: video laryngoscopy Insertion site: oral Blade type: Margarita Video blade type: Parson Blade size: 4 Cormack-Lehane (video): grade I - full view of glottis Cuff volume: 8 mL Cuff inflated with: air ETT to teeth: 24 cm Placement verified by: auscultation and CO2 detection Airway secured with: silk tape Number of attempts: 2 Ventilation between attempts: none us Pritesh Easley DO ANESTHESIA ORDERABLES Fi nal Result * ECG 12 lead (04/03/2025 8:13 AM CDT) 04/03/2025 8:13 AM CDT Narrative [facility] - 04/03/2025 8:16 AM CDT Vent Rate: 81 bpm RR Interval: 738 msec CA Interval: 0 msec QRS Duration: 121 msec QT Interval: 404 msec QTC Interval: 441 msec P-R-T [place]: 0 - 41 - 5 degrees IMPRESSION: ATRIAL FIBRILLATION RIGHT BUNDLE BRANCH BLOCK [120+ ms QRS DURATION, UPRIGHT V1, 40+ ms S IN I/aVL/V4/V5/V6] POSSIBLE ANTERIOR MYOCARDIAL INFARCTION , OF INDETERMINATE AGE [30 ms Q WAVE IN V3/V4, OR R < 0.2 mV IN V4] ABNORMAL ECG Electronically Signed By: Pritesh Hope MD PhD us Jose Luis Castro MD ECG ORDERABLES Final Re sult [facility] * eGFR (04/03/2025 8:00 AM CDT) eGFR 68 >=60 mL/min/1. 73 m2 Comment: Interpretive Data Reference Interval Normal >/= 90 mL/min/1.73m2 Mildly decreased* 60 - 89 mL/min/1.73m2 Mildly to moderately decreased 45 - 59 mL/min/1.73m2 Moderately to severely decreased 30 - 44 mL/min/1.73m2 Severely decreased 15 - 29 mL/min/1.73m2 Kidney Failure < 15 mL/min/1.73m2 *Relative to young adult level Estimated glomerular filtration rate is determined by the 2020 CKD-EPI equation recommended by the National Kidney Foundation (A Unifying Approach to GFR Estimation: Recommendations of the NKF-ASK Task Force on Reassessing the Inclusion of Race in Diagnosing Kidney Disease, JASN 2020). The CKD-EPI equation should not be used for patients with unstable renal function and has not been validated in children and those over 70. Current interpretive data was last reviewed 2021. Blood 04/03/2025 8:00 AM CDT 04/03/2025 8:00 AM CDT Jose Luis Castro MD LAB BLOOD ORDERABLES Fin al Result [facility] [address] Department of Laboratories [place], [place] [id number] * Differential, auto (04/03/2025 8:00 AM CDT) Neutrophil abs 4.70 1.50 - 6.50 K/cumm Imm gran abs 0.02 0.00 - 0.10 K/cumm [facility] Lymphocyte abs 2.30 0.80 - 3.30 K/cumm [facility] Monocyte abs 0.71 0.20 - 0.80 K/cumm [facility] Eosinophil abs 0.09 0.00 - 0.50 K/cumm [facility] Basophil abs 0.02 0.00 - 0.10 K/cumm [facility] Neutrophil pct 59.9 % [facility] Comment: Interpretive Data Percent cell count reference ranges are not reported, since discordance with absolute values may lead to misinterpretation of CBC data. Current Interpretive Data was last revised on 2017. Imm gran pct 0.3 % [facility] Comment: Interpretive Data Percent cell count reference ranges are not reported, since discordance with absolute values may lead to misinterpretation of CBC data. Current Interpretive Data was last revised on 2017. Lymphocyte pct 29.3 % [facility] Comment: Interpretive Data Percent cell count reference ranges are not reported, since discordance with absolute values may lead to misinterpretation of CBC data. Current Interpretive Data was last revised on 2017. Monocyte pct 9.1 % [facility] Comment: Interpretive Data Percent cell count reference ranges are not reported, since discordance with absolute values may lead to misinterpretation of CBC data. Current Interpretive Data was last revised on 2017. Eosinophil pct 1.1 % [facility] Comment: Interpretive Data Percent cell count reference ranges are not reported, since discordance with absolute values may lead to misinterpretation of CBC data. Current Interpretive Data was last revised on 2017. Basophil pct 0.3 % [facility] Comment: Interpretive Data Percent cell count reference ranges are not reported, since discordance with absolute values may lead to misinterpretation of CBC data. Current Interpretive Data was last revised on 2017. Blood 04/03/2025 8:00 AM CDT 04/03/2025 8:00 AM CDT us Jose Luis Castro MD LAB BLOOD ORDERABLES Fin al Result [facility] [address] Department of Laboratories [place], [place] [id number] * CBC with auto differential (04/03/2025 8:00 AM CDT) WBC 7.84 3.80 - 9.90 K/cumm Hgb 14.4 13.0 - 17.5 g/dL [facility] Hct 43.4 38.9 - 50.3 % [facility] [address] 306 150 - 400 K/cumm [facility] MPV 10.1 9.1 - 12.3 fL [facility] RBC 4.63 4.30 - 5.80 M/cumm [facility] MCV 93.7 81.3 - 96.4 fL [facility] MCH 31.1 27.1 - 33.3 pg [facility] MCHC 33.2 32.3 - 35.7 g/dL [facility] RDW CV 12.6 11.1 - 14.9 % [facility] RDW SD 43.8 35.7 - 48.1 fL [facility] NRBC abs 0.00 0.00 - 0.01 K/cumm [facility] Blood 04/03/2025 8:00 AM CDT 04/03/2025 8:00 AM CDT Jose Luis Castro MD LAB BLOOD ORDERABLES Fin al Result Performing Organization Address [facility] Co de Phone Number [facility] [address] Department [place] [place] [address] * Type and screen (04/03/2025 8:00 AM CDT) Pathologist [facility] ABO Rh O Positive Julienne, indirect Negative [facility] Blood 04/03/2025 8:00 AM CDT 04/03/2025 8:03 AM CDT Narrative [facility] - 04/03/2025 9:00 AM CDT Has the patient had Daratumumab or Isatuximab in the past 6 months?->Unknown Jose Luis Castro MD LAB BLOOD BANK TEST ORDE RABLES Final Result Performing Organization Address [facility] Co de Phone Number [facility] [address] Department [place] [address] * Basic metabolic panel (04/03/2025 8:00 AM CDT) Sodium 143 135 - 145 mmol/L Potassium, pl 4.1 3.3 - 4.9 mmol/L [facility] Chloride 108 97 - 110 mmol/L [facility] CO2 23 22 - 32 mmol/L [facility] Anion gap 12 2 - 15 mmol/L [facility] BUN 14 6 - 25 mg/dL [facility] Creatinine 1.18 0.80 - 1.30 mg/dL [facility] Glucose 100 70 - 199 mg/dL [facility] Comment: Interpretive Data Fasting glucose >/= 126 mg/dl is diagnostic for diabetes. Fasting is defined as no caloric intake for at least 8 hours. Fasting glucose between 100 mg/dl to 125 mg/dl is diagnostic of prediabetes. In a patient with classic symptoms of hyperglycemia or hyperglycemic crisis, a random glucose >/= 200 mg/dl is diagnostic for diabetes. In the absence of unequivocal hyperglycemia, results should be confirmed by repeat testing. The classification and Diagnosis of Diabetes Diabetes Care 202; 46: S19-S40. Current interpretive data was last revised 2022. Calcium 9.4 8.5 - 10.3 mg/dL [facility] Blood 04/03/2025 8:00 AM CDT 04/03/2025 8:00 AM CDT Jose Luis Castro MD LAB BLOOD ORDERABLES Fin al Result [facility] [address] [place] [address] from Last 3 Months Insurance [employer] OOS Member Subscriber Plan / Payer (Ef fective 2024-Present) Name:Tomas Ceja Relation to Subscriber:Self Name:Tomas Ceja Payer ID:[id number] (NAIC) Type: TIANNA Address: [facility] [id number] [id number] Care Teams Bank Consultant Relationship Specialty Start Date End Date WinterConstanza NP [address] [place] [address] PCP - General Nurse Practitioner 06/26/24 Jose Luis Castro MD [address] [address] Consulting Physician Clinical Cardiac Electrophysiology 05/03/25
--- OUTSIDE RECORDS SUMMARY | 2025-06-16 15:13 | XMS_ITS | Clinical Summary ---
Author Organization [facility] Address [address] [address] Care Team Providers Care Rn Social Work Name Role Phone Unknown, Provider Primary Care Provider Unavaila ble Source Comments [facility],non-owned Affiliates and Associated Physician Practices is amultiple site organization consisting of ambulatory clinics and hospital sitesin [place], [place]. This disclosure is being madepursuant to the Care Everywhere program and may not contain all information available regarding this patient. Last updated 18.[facility] [employer] Allergies No known active allergies Medications * Be aware that medications may not be up to date on this document. Alwaysverify current medications with the patient. amiodarone (Cordarone) 200 MG tablet Take 1 (one) tablet by mouth 2 times daily 4 Active tirzepatide (Mounjaro) 5 MG/0.5ML injectionIndic ations:Weight Loss Inject 5 (five) mg subcutaneously every 7 days Reasons: Weight Loss Active apixaban (Eliquis) 5 MG tablet Take 1 (one) tablet by mouth 2 times daily Active prednisoLONE acetate (Pred Forte) 1 % ophthalmic suspension Instill 1 (one) drop into right eye 4 times daily 5 Active nepafenac (Nevanac) 0.1 % ophth suspension Instill 1 drop into right eye 4 times daily 5 Active moxifloxacin (Vigamox) 0.5 % ophthalmic solution Instill 1 (one) drop into right eye 4 times daily 5 Active rosuvastatin (Crestor) 20 MG tablet 5 Active prednisoLONE acetate (Pred Forte) 1 % ophthalmic suspension Instill 1 (one) drop into left eye 4 times daily 5 Active nepafenac (Nevanac) 0.1 % ophth suspension Instill 1 drop into left eye 4 times daily 5 Active moxifloxacin (Vigamox) 0.5 % ophthalmic solution Instill 1 (one) drop into left eye 4 times daily 5 Active brimonidine (Alphagan) 0.2 % ophthalmic solution Instill 1 (one) drop into left eye 3 times daily 15 mL 5 Active Active Problems No known active problems Social History Tobacco Use Types Packs/Day Years Used Date Smoking Tobacco: Never Smokeless Tobacco: Never Tobacco Cessation:Counseling Given: Not Answered Alcohol Use Standard Drinks/Week Comments Not Currently 0 (1 standard drink = 0.6 oz pur e alcohol) NOT FOR 2 YEARS Sex and Gender Information Value Date Recorded Sex Assigned at Not on file Legal Sex Male 10:26 AM CDT Gender Identity Not on file Sexual Orientation Not on file Last Filed Vital Signs Vital Sign Reading Time Taken Comments Blood Pressure 114/78 10/08/2024 8:10 AM VACATION GUIDE Pulse 70 10/08/2024 8:10 AM VACATION GUIDE Temperature 36.3 C (97.3 F) 10/08/2024 8:00 AM VACATION GUIDE Respiratory Rate 14 10/08/2024 8:10 AM VACATION GUIDE Oxygen Saturation 96% 10/08/2024 8:10 AM VACATION GUIDE Inhaled Oxygen Concentration - - Weight 146.4 kg (322 lb 12.8 oz) 10/08/2024 6:26 AM VACATION GUIDE Height 182.9 cm (6') 10/08/2024 6:26 AM VACATION GUIDE Body Mass Index 43.78 10/08/2024 6:26 AM VACATION GUIDE Plan of Treatment Health Maintenance Due Date Last Done Comments COLOGUARD (AGES 45-75) - COL ON CA SCREENING 1958 COLON MONITORING 1958 COLONOSCOPY - COLON CA SCREENING 1958 CT COLONOGRAPHY - COLON CA SCREENING 1960 Colorectal Cancer Screening 1958 FIT - COLON CA SCREENING 1958 FLEX SIG - COLON CA SCREENING 1958 HEPATITIS C SCREENING 11/22/1976 DTAP/TDAP/TD VACCINES (1 - Tdap) 1977 PNEUMOCOCCAL VACCINE 50+ (1 of 1 - PCV) 2008 ZOSTER VACCINE (1 of 2) 2008 Respiratory Syncytial Virus (RSV) Vaccine Pt: or over 60 yrs (1 - Risk 60-74 years 1-dose series) 2018 DEPRESSION SCREENING 09/11/2024 SCREENING FOR DIABETES 09/25/2024 COVID-19 VACCINE (1 - 2023-2 5 season) 2025 INFLUENZA VACCINE (#1) 2025 HEPATITIS B VACCINE Aged Out No longe r eligible based on patient's age to complete this topic HIB VACCINE Aged Out No longer eligi ble based on patient's age to complete this topic HPV VACCINE Aged Out No longer eligi ble based on patient's age to complete this topic MENINGOCOCCAL (Group B) VACC INE SHARED DECISION-MAKING Aged Out No longer eligibl e based on patient's age to complete this topic MENINGOCOCCAL GROUPS A/C/Y/W VACCINE Aged Out No longer eligible b ased on patient's age to complete this topic Medical Devices Implanted Type Area Straightening Machine Operator Device Identifier Shelf Expiration Date Model / Serial / Lot [employer] Iol Aspheric Absorbing Iol +20.5 D Implanted:Qty: 1 on 09/24/2024 by Piyush Lafleur MD at [facility] Implant Non-Ortho Right: Eye [employer] 07/05/2027 [id number] / [id number] / N/A Clareon Iol [id number] 21.5 Implanted:Qty: 1 on 10/08/2024 by Piyush Lafleur MD at [facility] Left: Eye 06/20/2027 CCA0T0 / [id number] / Insurance Care Teams Rn Social Work Relationship Specialty Start Date End Date Unknown, Provider PCP - General 12/26/23
--- OUTSIDE RECORDS SUMMARY | 2025-06-16 15:13 | XMS_ITS | Encounter Summary ---
Author Organization [facility] Address [address] [place] [address] Care Team Providers Care Instructor Trainer Canine Service Name Role Phone Constanza Stanley NP Primary Care Provider [phone] Jose Luis Castro MD Unavailable [phone] Encounter Details Date Type Department Care Team (Late st Contact Info) Description 08/07/2024 Orders Only [facility] Health Information Management [address] [place] [id number] Scanning, Provider Social History Tobacco Use Types Packs/Day Years Used Date Smoking Tobacco: Never Assessed Sex and Gender Information Value Date Recorded Sex Assigned at Not on file Legal Sex Male 9:01 AM CDT Gender Identity Not on file Sexual Orientation Not on file documented as of this encounter Plan of Treatment Not on file documented as of this encounter Procedures Procedure Name Priority Date/Time Associated Diagnosis Comments SCAN - RADIOLOGY/IMAGING 08/07/2024 documented in this encounter Results * SCAN - RADIOLOGY/IMAGING (08/07/2024) Anatomical Region Laterality Modality Other us Provider Scanning Final Result documented in this encounter Visit Diagnoses Not on filedocumented in this encounter Care Teams Instructor Trainer Canine Service Relationship Specialty Start Date End Date Constanza Stanley NP [address] [place] [address] PCP - General Nurse Practitioner 06/26/24 Jose Luis Castro MD [address] [facility] [address], [place] [address] Consulting Physician Clinical Cardiac Electrophysiology 05/03/25 documented as of this encounter
== END 2025-06-16 14:25 | disposition home or self-care (01) ==
LOC: ANHIMG 14:25
PROVIDERS: PCP Nurse Practitioner Family; Visit Provider Nurse Practitioner Family
DX: R60.0 Localized edema (principal); R23.4 Changes in skin texture; T14.8XXA Other injury of unspecified body region, initial encounter
CPT/HCPCS: 76882